=== PATIENT | male | born 1990 | race African-American/Black ===

== ENCOUNTER 2019-02-14 15:17 | Emergency (ER) | payer SELFPAY ==
[~2019-02-14] VITALS: Ht 175.3 cm; Wt 84.0 kg
[2019-02-14 19:18] VITALS: BP 123/69
== END 2019-02-14 19:20 | disposition home or self-care (01) ==
LOC: ER 15:17
DX: G40.909 Epilepsy, unspecified, not intractable, without status epilepticus (principal); F15.10 Other stimulant abuse, uncomplicated; F99 Mental disorder, not otherwise specified
CPT/HCPCS: 99283; Z7610